=== PATIENT | male | born 1955 | race Hispanic/Latino ===

== ENCOUNTER 2022-09-03 11:10 | Day surgery (SDC) | payer MEDICARE ==
[2022-09-02 08:38] VITALS: BMI 27.6
[2022-09-03] MEDS ORDERED: Bupivacaine/Epinephrine 0.25% 30 ML VIAL ONE (13:35)
[2022-09-03] MEDS ORDERED: Fentanyl 250 MCG/5 ML VIAL ONE (14:42)
[2022-09-03] MEDS ORDERED: SUGAMMADEX SODIUM 200 MG/2 ML VIAL ONE (14:47)
[2022-09-03] MEDS ORDERED: CEFAZOLIN 2 GM VIAL ONE (14:50)
[2022-09-03] MEDS ORDERED: Sodium Chloride 0.9% 100 ML ONE (14:50)
[2022-09-03] MEDS ORDERED: PROPOFOL 200 MG/20 ML VIAL ONE (14:53)
[2022-09-03] MEDS ORDERED: ePHEDrine Sulfate 50 MG/10 ML VIAL ONE (14:53)
[2022-09-03] MEDS ORDERED: Rocuronium Bromide 10 MG/ML (10ML VIAL) ONE (14:53)
[2022-09-03] MEDS ORDERED: Ondansetron PF 4 MG/2 ML Vial ONE (14:53)
[2022-09-03] MEDS ORDERED: Lidocaine 1% PF 5 ML VIAL ONE (14:53)
[2022-09-03] MEDS ORDERED: Dexamethasone 20 MG/5 ML VIAL ONE (14:53)
[2022-09-03] MEDS ORDERED: FENTANYL 50 MCG/ML 1 ML VIAL ONE ×2 (15:53→16:05)
[2022-09-03] MEDS ORDERED: HYDROcodone/Acetaminophen 5/325 mg Tablet ONE (16:15)
== END 2022-09-03 16:45 | disposition home or self-care (01) ==
LOC: SDC 11:10
PROVIDERS: ATTEND Surgery
PROC: 0FT44ZZ Resection of Gallbladder, Percutaneous Endoscopic Approach (ICD-10-PCS; principal; 2022-09-03)
DX: K80.10 Calculus of gallbladder with chronic cholecystitis without obstruction (principal); I10 Essential (primary) hypertension; M19.90 Unspecified osteoarthritis, unspecified site; Z87.891 Personal history of nicotine dependence; Z79.899 Other long term (current) drug therapy
CPT/HCPCS: 47562; 93005; C1889; J3010; 88304; 93010; J1100; J2405; J2704; J3490

== ENCOUNTER 2025-03-07 09:02 | Outpatient (CLI) | payer MEDICARE | END 2025-03-07 09:03 | disposition home or self-care (01) | LOC: BICCT 09:02 | PROVIDERS: ATTEND Family Medicine | DX: Z12.2 Encounter for screening for malignant neoplasm of respiratory organs (principal); Z87.891 Personal history of nicotine dependence; S22.42XD Multiple fractures of ribs, left side, subsequent encounter for fracture with routine healing | CPT/HCPCS: 71271 ==